=== PATIENT | female | born 1965 | race Caucasian/White ===

== ENCOUNTER 2024-08-23 09:24 | Outpatient (CLI) | payer BC, SELFPAY ==
--- OUTSIDE RECORDS SUMMARY | 2024-08-23 09:42 | XMS_ITS | Clinical Summary ---
Author Organization [facility] Medical Office Building B Address [address] [place] [address] Care Team Providers Care Poultry Picking Machine Tender Name Role Phone No, Physician Primary Care Provider [phone] Allergies No known active allergies Medications loratadine 10 mg capsule Take 10 mg by mouth Active Active Problems Problem Noted Date Diagnosed Date Mass of left breast 03/28/2023 Surgical History Surgery Date Site/Laterality Comments OTHER SURGICAL HISTORY 1982 : OTHER SURGICAL HISTORY 1983 : OTHER SURGICAL HISTORY 1988 : OTHER SURGICAL HISTORY 1986 : TONSILLECTOMY Tonsillectomy TUBAL LIGATION Bilateral tubal ligation AUGMENTATION MAMMAPLASTY BREAST IMPLANT REMOVAL 04/18/2021 - 04/17/2022 Bilateral Medical History Medical History Date Comments Hx Other Medical ; Outc ome: 8lb(s) 1 oz Female Hx Other Medical ; Outc ome: 5lb(s) Female Hx Other Medical ; Outc ome: 6lb(s) Female Hx Other Medical ; Outc ome: 9lb(s) 10 oz Male Abnormal Pap smear of cervix STI (sexually transmitted infection) Family History Medical History Relation Name Comments Hyperlipidemia Brother 1 Hyperlipidemi a; Liver disease Brother 2 Liver disease; Thyroid disease Brother 3 Thyroid dise ase; Asthma Daughter Asthma; Heart disease Maternal Grandfather Heart disease; Hyperlipidemia Maternal Grandfather Hyper lipidemia; Breast cancer Maternal Grandmother 60 Diabetes Maternal Grandmother Diabete s mellitus; Diabetes Mother Diabetes mellit us; Hyperlipidemia Sister Hyperlipidemi a; Melanoma Sister 39 Relation Name Status Comments Brother 1 Brother 2 Brother 3 Daughter Maternal Grandfather Maternal Grandmother Mother Sister Social History Tobacco Use Types Packs/Day Years Used Date Smoking Tobacco: Never Tobacco Cessation:Counseling Given: Not Answered Alcohol Use Standard Drinks/Week Comments Yes 0 (1 standard drink = 0.6 oz pur e alcohol) Humiliation, Afraid, Rape, and Kick questionnair e Answer Date Recorded Within the last year, have y ou been afraid of your partner or ex-partner? No 04/26/2023 Within the last year, have y ou been humiliated or emotionally abused in other ways by your partner or ex-partner? No Within the last year, have y ou been kicked, hit, slapped, or otherwise physically hurt by your partner or ex-partner? No 04/26/2023 Within the last year, have y ou been raped or forced to have any kind of sexual activity by your partner or ex-partner? No 04/26/2023 AUDIT-C Answer Date Recorded Q1: How often do you have a drink containing alc ohol? Monthly or less 04/26/2023 Q2: How many drinks containi ng alcohol do you have on a typical day when you are drinking? 1 or 2 04/26/2023 Q3: How often do you have si x or more drinks on one occasion? Less than monthly 04/26/2023 PHQ-2 Answer Date Recorded PHQ-2 Total Score (If total score is 3 or more points, staff should administer the PHQ-9) 0 04/26/2023 Comments No Sex and Gender Information Value Date Recorded Sex Assigned at Not on file Legal Sex Female 7:42 PM WOOD HANDLER Gender Identity Not on file Sexual Orientation Not on file Obstetrics History Para Term AB IAB SAB Ectopic Multiple Livin g Live Births 5 4 Date Outcome GA Total Labor Labor/2nd/3rd Weight Sex Type Anes PTL Peggy A1 A5 Name Clin Last Filed Vital Signs Vital Sign Reading Time Taken Comments Blood Pressure 118/76 04/26/2023 1:11 PM WOOD HANDLER Pulse 64 04/24/2018 2:55 PM WOOD HANDLER Temperature 37.1 C (98.8 F) 04/24/2018 2:55 PM WOOD HANDLER Respiratory Rate - - Oxygen Saturation 100% 04/24/2018 2:55 PM WOOD HANDLER Inhaled Oxygen Concentration - - Weight 84.5 kg (186 lb 3.2 oz) 04/26/2023 1:11 P M WOOD HANDLER Height 156.2 cm (5' 1.5 ) 03/28/2023 9:00 AM WOOD HANDLER Body Mass Index 34.61 03/28/2023 9:00 AM WOOD HANDLER Plan of Treatment Health Maintenance Due Date Last Done Comments Colon Cancer Screening-Colonoscopy 1965 Hepatitis C Screening 1965 DTaP/Tdap/Td Vaccine (1 - Tdap) 1976 Hepatitis B Screening 1983 Zoster Vaccine (1 of 2) 2015 Covid-19 Vaccine (4 - 2023-2 5 season) 2023 06/26/2021, 05/21/2020, 04/30/2020 Breast Cancer Screening-Mammogram 03/28/2024 03/28/2023 Cervical Cancer Screening 04/26/20242023, 07/20/2015 Depression Screening 04/26/2024 04/26/2023 Regular Well Visit/Exam 18-64 04/26/2024 04/26/2023 Influenza Vaccine (Season Ended) 2024 Pneumococcal vaccine <65 Aged Out No longer eligible based on patient's age to complete this topic Procedures Procedure Name Priority Date/Time Associated Diagnosis Comments PAP AND HPV, REFLEX TO HPV GENOTYPES Routine 04/26/2023 1:54 PM WOOD HANDLER Encounter for gynecological examination with Papanicolaou smear of cervix DIAGNOSTIC MAMMOGRAM BILATERAL W PRIYA Schedule Routine, Read Routine (OP Routine) 03/28/2023 10:24 AM WOOD HANDLER Breast pain, left from Last 3 Months or Most Recently Relevant to Health Maintenance Results * Pap and HPV, reflex to HPV Genotypes (04/26/2023 1:54 PM WOOD HANDLER) CLINICAL INFORMATION: [employer] [facility] Comment: Routine exam Postmenopausal LMP [facility] Comment:CECILIA Previous Pap [employer] [facility] Comment:None given Prev. Bx [facility] Comment:None given SOURCE: [employer] [facility] Comment:Cervix, Endocervix Pap, specimen adequacy [facility] Comment: Satisfactory for evaluation. Endocervical/transformation zone component present. HPV interp [facility] Comment: Cytology Results: Negative for intraepithelial lesion or malignancy. COMMENTS [facility] Comment: This case could not be evaluated with computer assisted technology. The slide was manually screened according to routine procedures. Business Area Director Jesus Manuel [facility] Comment: BES, CT(ASCP) CT screening location: [place] [address] Administration [place]IS [place]av[place] [address] Comment [facility] Comment: EXPLANATORY NOTE: The Pap is a screening test for cervical cancer. It is not a diagnostic test and is subject to false negative and false positive results. It is most reliable when a satisfactory sample, regularly obtained, is submitted with relevant clinical findings and history, and when the Pap result is evaluated along with historic and current clinical information. Human papillomavirus DNA, High Risk E6/E7 Not Detected NOT DETECTED [facility] /Wilian [facility]ELAY[facility] Comment: Not Detected High Risk HPV types (16,18,31,33,35,39,45,51,52, 56,58,59,66,68) were not detected. Other HPV types which cause anogenital lesions may be present. The significance of the other types of HPV in malignant processes has not been established. Methodology: Real Time PCR Thin prep 04/26/2023 1:54 PM WOOD HANDLER 04/27/2023 3:53 AM WOOD HANDLER us Mirian Montgomery NP LAB CYTOLOGY ORDERABLES Final Re sult [place] [address] [address] [place] [address] [facility] [address] [place] [address] * Diagnostic Mammogram Bilateral W Priya (03/28/2023 10:24 AM WOOD HANDLER) Anatomical Region Laterality Modality Breast Bilateral Mammography 03/28/2023 11:1 2 AM WOOD HANDLER Impressions 03/28/2023 11:21 AM WOOD HANDLER 1. Benign simple cyst corresponding to patient's site of palpable abnormality in the LEFT breast at the 5:30 position 1 cm from the nipple 2. No sonographic or mammographic correlate in the LEFT axilla for patient's pain OVERALL FINAL ASSESSMENT: BI-RADS Category 2: Benign. RECOMMENDATION: 1. Annual screening mammography is recommended. 2. Clinical follow-up is recommended. Appropriate clinical management is recommended. Negative imaging does not negate the need of a biopsy if high clinical suspicion exists, and a biopsy under palpation may be performed. Dictated by: Hoang Jimenez M.D. The radiology attending physician has personally reviewed this study, and had reviewed and/or edited this written report and agrees with it. Electronically signed by: Joselin Whitney M.D. Narrative 03/28/2023 11:21 AM WOOD HANDLER EXAMINATION: BILATERAL DIGITAL DIAGNOSTIC MAMMOGRAM INCLUDING CAD AND BILATERAL DIGITAL BREAST TOMOSYNTHESIS; LEFT BREAST AND LEFT AXILLARY SONOGRAM HISTORY: 57-year-old female with LEFT axillary pain and LEFT breast palpable abnormality COMPARISON: Screening mammogram 07/28/2015 and 02/28/2007 TECHNIQUE: Full field digital mammographic views of BOTH breasts were performed, including computer aided detection (CAD) and BILATERAL digital breast tomosynthesis (DBT). Directed ultrasound evaluation of the LEFT breast was performed. Directed ultrasound evaluation of the LEFT axilla was performed. BREAST PARENCHYMAL COMPOSITION: The breasts are heterogenously dense, which may obscure small masses. MAMMOGRAM FINDINGS: There is no new suspicious abnormality in either breast. No suspicious abnormality in the LEFT axilla, area of pain indicated by the triangular marker. No suspicious abnormality in the area of palpable concern in the left subareolar breast, SONOGRAM INDICATED BY THE PATIENT. FINDINGS: In the LEFT breast at the 5:30 position 1 cm from the nipple there is a simple cyst that measures 0.8 cm in greatest dimension with posterior through transmission and no internal vascular flow. No suspicious sonographic findings in the LEFT axilla. Procedure Note Joselin Whitney MD - 03/28/2023 EXAMINATION: BILATERAL DIGITAL DIAGNOSTIC MAMMOGRAM INCLUDING CAD AND BILATERAL DIGITAL BREAST TOMOSYNTHESIS; LEFT BREAST AND LEFT AXILLARY SONOGRAM HISTORY: 57-year-old female with LEFT axillary pain and LEFT breast palpable abnormality COMPARISON: Screening mammogram 07/28/2015 and 02/28/2007 TECHNIQUE: Full field digital mammographic views of BOTH breasts were performed, including computer aided detection (CAD) and BILATERAL digital breast tomosynthesis (DBT). Directed ultrasound evaluation of the LEFT breast was performed. Directed ultrasound evaluation of the LEFT axilla was performed. BREAST PARENCHYMAL COMPOSITION: The breasts are heterogenously dense, which may obscure small masses. MAMMOGRAM FINDINGS: There is no new suspicious abnormality in either breast. No suspicious abnormality in the LEFT axilla, area of pain indicated by the triangular marker. No suspicious abnormality in the area of palpable concern in the left subareolar breast, SONOGRAM INDICATED BY THE PATIENT. FINDINGS: In the LEFT breast at the 5:30 position 1 cm from the nipple there is a simple cyst that measures 0.8 cm in greatest dimension with posterior through transmission and no internal vascular flow. No suspicious sonographic findings in the LEFT axilla. IMPRESSION: 1. Benign simple cyst corresponding to patient's site of palpable abnormality in the LEFT breast at the 5:30 position 1 cm from the nipple 2. No sonographic or mammographic correlate in the LEFT axilla for patient's pain OVERALL FINAL ASSESSMENT: BI-RADS Category 2: Benign. RECOMMENDATION: 1. Annual screening mammography is recommended. 2. Clinical follow-up is recommended. Appropriate clinical management is recommended. Negative imaging does not negate the need of a biopsy if high clinical suspicion exists, and a biopsy under palpation may be performed. Dictated by: Hoang Jimenez M.D. The radiology attending physician has personally reviewed this study, and had reviewed and/or edited this written report and agrees with it. Electronically signed by: Joselin Whitney M.D. Sylvia Gamez NP IMG MAMMO PROCEDURES Final Result from Last 3 Months or Most Recently Relevant to Health Maintenance Care Teams Poultry Picking Machine Tender Relationship Specialty Start Date End Date No, Physician PCP - General 02/08/23
--- OUTSIDE RECORDS SUMMARY | 2024-08-23 09:42 | XMS_ITS | Referral Summary ---
Author Organization [facility] Address [address] [place] [address] Care Team Providers Care Chief Wharfinger Name Role Phone No, Physician Primary Care Provider [phone] Allergies No known active allergies Medications loratadine 10 mg capsule Take 10 mg by mouth Active Active Problems Problem Noted Date Diagnosed Date Mass of left breast 03/28/2023 Social History Tobacco Use Types Packs/Day Years [...] on file Legal Sex Female 7:42 PM SKEIN DRIER Gender Identity Not on file Sexual Orientation Not on file Last Filed Vital Signs Vital Sign Reading Time Taken Comments Blood Pressure 118/76 04/26/2023 1:11 PM SKEIN DRIER Pulse 64 04/24/2018 2:55 PM SKEIN DRIER Temperature 37.1 C (98.8 F) 04/24/2018 2:55 PM SKEIN DRIER Respiratory Rate - - Oxygen Saturation 100% 04/24/2018 2:55 PM SKEIN DRIER Inhaled Oxygen Concentration - - Weight 84.5 kg (186 lb 3.2 oz) 04/26/2023 1:11 P M SKEIN DRIER Height 156.2 cm (5' 1.5 ) 03/28/2023 9:00 AM SKEIN DRIER Body Mass Index 34.61 03/28/2023 9:00 AM SKEIN DRIER Plan of Treatment Not on file Procedures Procedure Name Priority Date/Time Associated Diagnosis Comments PAP AND HPV, REFLEX TO HPV GENOTYPES Routine 04/26/2023 1:54 PM SKEIN DRIER Encounter for gynecological examination with Papanicolaou smear of cervix DIAGNOSTIC MAMMOGRAM BILATERAL W PRIYA Schedule Routine, Read Routine (OP Routine) 03/28/2023 10:24 AM SKEIN DRIER Breast pain, left from Last 3 Months or Most Recently Relevant to Health Maintenance Results * Pap and HPV, reflex to HPV Genotypes (04/26/2023 1:54 PM SKEIN DRIER) CLINICAL INFORMATION: [facility] Comment: Routine exam Postmenopausal LMP [facility] Comment:CECILIA Previous Pap [facility] Comment:None given Prev. Bx [facility] Comment:None given SOURCE: [facility] Comment:Cervix, Endocervix Pap, specimen adequacy [facility] Comment: Satisfactory for evaluation. Endocervical/transformation zone component present. HPV interp [facility] Comment: Cytology Results: Negative for intraepithelial lesion or malignancy. COMMENTS [facility] Comment: This case could not be evaluated with computer assisted technology. The slide was manually screened according to routine procedures. Wash Barrel Leader [facility] Comment: BES, CT(ASCP) CT screening location: [place] [address] Administration [place] [id number] Comment [facility] Comment: EXPLANATORY NOTE: The Pap is a [...] Risk E6/E7 Not Detected NOT DETECTED Odalys [facility] /Wilian ZELAYA Comment: Not Detected High Risk HPV types (16,18,31,33,35,39,45,51,52, 56,58,59,66,68) were not detected. Other HPV types which cause anogenital lesions may be present. The significance of the other types of HPV in malignant processes has not been established. Methodology: Real Time PCR Thin prep 04/26/2023 1:54 PM SKEIN DRIER 04/27/2023 3:53 AM SKEIN DRIER Mirian Montgomery NP LAB CYTOLOGY ORDERABLES Final Re sult [place] [address] [address] [place] [phone] [facility]/[place] [address] [address] [place] [address] * Diagnostic Mammogram Bilateral W Priya (03/28/2023 10:24 AM SKEIN DRIER) Anatomical Region Laterality Modality Breast Bilateral Mammography 03/28/2023 11:1 2 AM SKEIN DRIER Impressions 03/28/2023 11:21 AM SKEIN DRIER 1. Benign simple cyst corresponding to patient's [...] Joselin Whitney M.D. Narrative 03/28/2023 11:21 AM SKEIN DRIER EXAMINATION: BILATERAL DIGITAL DIAGNOSTIC MAMMOGRAM INCLUDING CAD [...] Recently Relevant to Health Maintenance Care Teams Chief Wharfinger Relationship Specialty Start Date End Date No, Physician PCP - General 02/08/23
--- OUTSIDE RECORDS SUMMARY | 2024-08-23 09:42 | XMS_ITS | Encounter Summary ---
Author Organization [facility] Healthcare Address [address] [place] [address] Care Team Providers Care Cds Sales Advisor Name Role Phone Unavailable Primary Care Provider Unavailabl e Reason for Visit * Diagnostic Imaging (Routine) - Closed Specialty Diagnoses / Procedures Referred By Contac t Referred To Contact Procedures Breast Imaging US Outside Reference Transcribed Order, Provider Referral ID Status Reason Start Date Expiration Date Visits Re quested Visits Authorized [id number] Closed 03/28/2023 04/26/2024 1 1 Encounter Details Date Type Department Care Team (Late st Contact Info) Description 07/28/2015 12:05 AM CDT Hospital Encounter [facility] [address] [place] [id number] Social History Tobacco Use Types Packs/Day Years Used Date Smoking Tobacco: Never Alcohol Use Standard Drinks/Week Comments Yes 0 [...] on file Legal Sex Female 7:42 PM SONALI Gender Identity Not on file Sexual Orientation Not on file documented as of this encounter Functional Status * Audit-C Score Answer Date of Assessment Author 2 04/26/2023 1:29 PM Wing Hanna NP * Intimate Partner Violence Question Answer Date of Assessment Author Within the last year, have y ou been humiliated or emotionally abused in other ways by your partner or ex-partner? No 04/26/2023 1:30 PM Mirian Hanna NP Within the last year, have y ou been afraid of your partner or ex-partner? No 04/26/2023 1:30 PM Mirian Hanna NP Within the last year, have y ou been raped or forced to have any kind of sexual activity by your partner or ex-partner? No 04/26/2023 1:30 PM Mirian Hanna NP Within the last year, have y ou been kicked, hit, slapped, or otherwise physically hurt by your partner or ex-partner? No 04/26/2023 1:30 PM Mirian Hanna NP * Question Answer Date of Assessment Author Q1: How often do you have a drink containing alcohol? Monthly or less 04/26/2023 1:29 PM Pamela Hanna NP Q2: How many drinks containing alcohol do you have on a typical day when you are drinking? 1 or 2 04/26/2023 1:29 PM Mirian Hanna NP Q3: How often do you have six or more drinks on one occasion? Less than monthly 04/26/2023 1:29 PM Mirian Hanna NP documented as of this encounter Plan of Treatment Not on file documented as of this encounter Procedures Procedure Name Priority Date/Time Associated Diagnosis Comments BREAST IMAGING US OUTSIDE REFERENCE Routine 07/28/2015 12:05 AM CDT documented in this encounter Results * Breast Imaging US Outside Reference (07/28/2015 12:05 AM CDT) Impressions [facility] - 03/28/2023 11:52 AM LUMBER CARRIER OPERATOR These images are for Reference purposes only and have not been reviewed by [facility] Radiology. There will be no report generated by a [facility] Radiologist. Narrative [facility] - 03/28/2023 11:52 AM LUMBER CARRIER OPERATOR EXAMINATION: Images For Reference Purposes Only us Provider Transcribed Order IMG MAMMO PROCEDURES Final Result [facility] documented in this encounter Visit Diagnoses Not on filedocumented in this encounter
--- OUTSIDE RECORDS SUMMARY | 2024-08-23 09:42 | XMS_ITS | Clinical Summary ---
Author Organization [facility] Address [facility] [place] [address] Care Team Providers Care Business Development Specialist Name Role Phone None, Provider Primary Care Provider Unavaila ble Social History Tobacco Use Types Packs/Day Years Used Date Smoking Tobacco: Never Assessed Comments Unknown Sex and Gender Information Value Date Recorded Sex Assigned at Not on file Legal Sex Female 7:06 AM CDT Gender Identity Not on file Sexual Orientation Not on file Plan of Treatment Health Maintenance Due Date Last Done Comments Cervical Cancer Screening Pa p Smear (Age 30 to 64) Every 3 Years 1965 Colorectal Cancer Screening Colonoscopy (10 Years) 1965 Annual Physical 1968 Hepatitis C 1983 DTaP, Tdap and Td Vaccines ( 1 - Tdap) 1984 Cervical Cancer Screening Pa p with HPV Testing (Age 30 to 64) Every 5 Years 1995 Cervical Cancer Screening wi th HPV 1995 Mammogram Screening 2005 Pneumococcal Vaccine: 50+ Years (1 of 1 - PCV) 2015 Zoster Vaccines (1 of 2) 2015 COVID-19 Vaccine (4 - 2023-2 5 season) 2023 06/26/2021, 05/21/2020, 04/30/2020 Meningococcal B Vaccine Aged Out No l onger eligible based on patient's age to complete this topic Meningococcal Vaccine Aged Out No lee ann enrico eligible based on patient's age to complete this topic RSV Immunizations Under 20 Months Aged Out No longer eligible b ased on patient's age to complete this topic Care Teams Business Development Specialist Relationship Specialty Start Date End Date None, Provider, PCP - General 01/12/22
--- OUTSIDE RECORDS SUMMARY | 2024-08-23 09:42 | XMS_ITS | Encounter Summary ---
Author Organization [facility] Healthcare Address [address] [place] [address] Care Team Providers Care Brim Curler Name Role Phone Unavailable Primary Care Provider Unavailabl e Reason for Visit * Diagnostic Imaging (Routine) - Closed Specialty Diagnoses / Procedures Referred By Gissel cobb Referred To Contact Diagnoses Breast pain, left Procedures Breast Imaging Screening Outside Reference Sylvia Gamez NP Phone: tel: fax: Referral ID Status Reason Start Date Expiration Date Visits Re quested Visits Authorized [id number] Closed 03/28/2023 04/26/2024 1 1 Encounter Details Date Type Department Care Team (Late st Contact Info) Description 07/28/2015 Hospital Encounter [facility]iology [facility] [address] [place] [address] Social History Tobacco Use Types Packs/Day Years [...] on file Legal Sex Female 7:42 PM AEROSPACE ENGINEER OFFICER ARMAMENT Gender Identity Not on file Sexual Orientation [...] occasion? Less than monthly 04/26/2023 1:29 PM AEROSPACE ENGINEER OFFICER ARMAMENT Mirian Montgomery NP documented as of this encounter Plan of Treatment Not on file documented as of this encounter Procedures Procedure Name Priority Date/Time Associated Diagnosis Comments BREAST IMAGING MG SCREENING OUTSIDE REFERENCE Schedule Routine, Read Routine (OP Routine) 07/28/2015 12:00 AM CDT Breast pain, left documented in this encounter Results * Breast Imaging Screening Outside Reference (07/28/2015 12:00 AM CDT) Impressions [facility] - 03/28/2023 10:04 AM AEROSPACE ENGINEER OFFICER ARMAMENT These images are for Reference purposes only and have not been reviewed by [facility] Radiology. There will be no report generated by a [facility] Radiologist. Narrative [facility] - 03/28/2023 10:04 AM AEROSPACE ENGINEER OFFICER ARMAMENT EXAMINATION: Images For Reference Purposes Only us Sylvia Gamez NP IMG MAMMO PROCEDURES Final Result [facility] documented in this encounter Visit Diagnoses Not on filedocumented in this encounter
--- OUTSIDE RECORDS SUMMARY | 2024-08-23 09:43 | XMS_ITS | Patient Health Record ---
Author Organization [facility] Address [address] [place] [address] Care Team Providers Care Mounter Flutes And Piccolos Name Role Phone UNKNOWN, UNKNOWN Primary Care Provider Unavailab Boaz Cruz Unavailable Allergies No Known Allergies Reason For Referral No Information Problems Problem Type SNOMED Code ICD Code Onset Dates Problem Status W/U Status Risk Notes Problem [id number] Porokeratosis (Q82.8) Active confirmed Plan Of Treatment No Information Medical (General) History Surgical History Surgery Date(Month/Year)
== END 2024-08-23 09:25 | disposition home or self-care (01) ==
LOC: ANHAUDIO 09:24
PROVIDERS: PCP Nurse Practitioner Family; Visit Provider Nurse Practitioner Family
DX: H90.3 Sensorineural hearing loss, bilateral (principal)
CPT/HCPCS: 92557; 92567

== ENCOUNTER 2024-08-23 11:25 | Outpatient (CLI) | payer BC, SELFPAY ==
--- OUTSIDE RECORDS SUMMARY | 2024-08-23 11:28 | XMS_ITS | Referral Summary ---
Author Organization [facility] Address [address] [place] [address] Care Team Providers Care Adjunct Nursing Faculty Name Role Phone No, Physician Primary Care Provider [phone] Allergies No known active allergies Medications loratadine [...] on file Legal Sex Female 7:42 PM MACHINE BOSS Gender Identity Not on file Sexual Orientation Not on file Last Filed Vital Signs Vital Sign Reading Time Taken Comments Blood Pressure 118/76 04/26/2023 1:11 PM MACHINE BOSS Pulse 64 04/24/2018 2:55 PM MACHINE BOSS Temperature 37.1 C (98.8 F) 04/24/2018 2:55 PM MACHINE BOSS Respiratory Rate - - Oxygen Saturation 100% 04/24/2018 2:55 PM MACHINE BOSS Inhaled Oxygen Concentration - - Weight 84.5 kg (186 lb 3.2 oz) 04/26/2023 1:11 P M MACHINE BOSS Height 156.2 cm (5' 1.5 ) 03/28/2023 9:00 AM MACHINE BOSS Body Mass Index 34.61 03/28/2023 9:00 AM MACHINE BOSS Plan of Treatment Not on file Procedures Procedure Name Priority Date/Time Associated Diagnosis Comments PAP AND HPV, REFLEX TO HPV GENOTYPES Routine 04/26/2023 1:54 PM MACHINE BOSS Encounter for gynecological examination with Papanicolaou smear of cervix DIAGNOSTIC MAMMOGRAM BILATERAL W PRIYA Schedule Routine, Read Routine (OP Routine) 03/28/2023 10:24 AM MACHINE BOSS Breast pain, left from Last 3 Months or Most Recently Relevant to Health Maintenance Results * Pap and HPV, reflex to HPV Genotypes (04/26/2023 1:54 PM MACHINE BOSS) CLINICAL INFORMATION: [facility] Comment: Routine exam Postmenopausal LMP [facility] Comment:CECILIA Previous Pap [facility] Comment:None given Prev. Bx [facility] Comment:None given SOURCE: [facility] Comment:Cervix, Endocervix Pap, specimen adequacy [facility] Comment: Satisfactory for evaluation. Endocervical/transformation zone component present. HPV interp [facility] Comment: Cytology Results: Negative for intraepithelial lesion or malignancy. COMMENTS [facility] Comment: This case could not be evaluated with computer assisted technology. The slide was manually screened according to routine procedures. [facility] Comment: BES, CT(ASCP) CT screening location: [place] [address] Administration PHYLLIS Chavira [address] Comment [facility] Comment: EXPLANATORY NOTE: The Pap is a [...] Risk E6/E7 Not Detected NOT DETECTED [facility] /Wilian ZELAYA Comment: Not Detected High Risk HPV types (16,18,31,33,35,39,45,51,52, 56,58,59,66,68) were not detected. Other HPV types which cause anogenital lesions may be present. The significance of the other types of HPV in malignant processes has not been established. Methodology: Real Time PCR Thin prep 04/26/2023 1:54 PM MACHINE BOSS 04/27/2023 3:53 AM MACHINE BOSS Mirian Montgomery NP LAB CYTOLOGY ORDERABLES Final Re sult [place] [address] Administration PHYLLIS [place] [address] [facility]/[place] [address] [place] [address] * Diagnostic Mammogram Bilateral W Priya (03/28/2023 10:24 AM MACHINE BOSS) Anatomical Region Laterality Modality Breast Bilateral Mammography 03/28/2023 11:1 2 AM MACHINE BOSS Impressions 03/28/2023 11:21 AM MACHINE BOSS 1. Benign simple cyst corresponding to patient's [...] Joselin Whitney M.D. Narrative 03/28/2023 11:21 AM MACHINE BOSS EXAMINATION: BILATERAL DIGITAL DIAGNOSTIC MAMMOGRAM INCLUDING CAD [...] Recently Relevant to Health Maintenance Care Teams Adjunct Nursing Faculty Relationship Specialty Start Date End Date No, Physician PCP - General 02/08/23
--- OUTSIDE RECORDS SUMMARY | 2024-08-23 11:28 | XMS_ITS | Clinical Summary ---
Author Organization [facility] Address [facility] [place] [address] Care Team Providers Care Hydraulic Miner Blasting Name Role Phone None, Provider Primary Care [...] age to complete this topic Care Teams Hydraulic Miner Blasting Relationship Specialty Start Date End Date None, Provider, PCP - General 01/12/22
--- OUTSIDE RECORDS SUMMARY | 2024-08-23 11:28 | XMS_ITS | Encounter Summary ---
Author Organization [facility] Address [address] [place] [address] Care Team Providers Care Earth Auger Operator Name Role Phone Unavailable Primary Care Provider Unavailabl e Reason for Visit * Diagnostic Imaging (Routine) - Closed Specialty Diagnoses / Procedures Referred By Contac t Referred To Contact Procedures Breast Imaging US Outside Reference Transcribed Order, Provider Referral ID Status Reason Start Date Expiration Date Visits Re quested Visits Authorized [id number] Closed 03/28/2023 04/26/2024 1 1 Encounter Details Date Type Department Care Team (Late st Contact Info) Description 07/28/2015 12:05 AM CDT Hospital Encounter [facility] [address] [place] [id number] Social History Tobacco Use Types Packs/Day Years [...] CDT) Impressions [facility] - 03/28/2023 11:52 AM MACHINE ROOM OPERATOR These images are for Reference purposes only and have not been reviewed by [facility]iology. There will be no report generated by a [facility] Radiologist. Narrative [facility] - 03/28/2023 11:52 AM MACHINE ROOM OPERATOR EXAMINATION: Images For Reference Purposes Only us Provider Transcribed Order IMG MAMMO PROCEDURES Final Result [facility] documented in this encounter Visit Diagnoses Not on filedocumented in this encounter
--- OUTSIDE RECORDS SUMMARY | 2024-08-23 11:28 | XMS_ITS | Clinical Summary ---
Author Organization [facility] Medical Office Building B Address [address] [place] [address] Care Team Providers Care Grain Elevator Operator Name Role Phone No, Physician Primary Care Provider [phone] Allergies No known active allergies Medications loratadine [...] on file Legal Sex Female 7:42 PM ADMINISTRATIVE RESIDENT Gender Identity Not on file Sexual Orientation Not on file Obstetrics History Para Term AB IAB SAB Ectopic Multiple Livin g Live Births 5 4 Date Outcome GA Total Labor Labor/2nd/3rd Weight Sex Type Anes PTL Peggy A1 A5 Name Clin Last Filed Vital Signs Vital Sign Reading Time Taken Comments Blood Pressure 118/76 04/26/2023 1:11 PM ADMINISTRATIVE RESIDENT Pulse 64 04/24/2018 2:55 PM ADMINISTRATIVE RESIDENT Temperature 37.1 C (98.8 F) 04/24/2018 2:55 PM ADMINISTRATIVE RESIDENT Respiratory Rate - - Oxygen Saturation 100% 04/24/2018 2:55 PM ADMINISTRATIVE RESIDENT Inhaled Oxygen Concentration - - Weight 84.5 kg (186 lb 3.2 oz) 04/26/2023 1:11 P M ADMINISTRATIVE RESIDENT Height 156.2 cm (5' 1.5 ) 03/28/2023 9:00 AM ADMINISTRATIVE RESIDENT Body Mass Index 34.61 03/28/2023 9:00 AM ADMINISTRATIVE RESIDENT Plan of Treatment Health Maintenance Due Date [...] TO HPV GENOTYPES Routine 04/26/2023 1:54 PM ADMINISTRATIVE RESIDENT Encounter for gynecological examination with Papanicolaou smear of cervix DIAGNOSTIC MAMMOGRAM BILATERAL W PRIYA Schedule Routine, Read Routine (OP Routine) 03/28/2023 10:24 AM ADMINISTRATIVE RESIDENT Breast pain, left from Last 3 Months or Most Recently Relevant to Health Maintenance Results * Pap and HPV, reflex to HPV Genotypes (04/26/2023 1:54 PM ADMINISTRATIVE RESIDENT) CLINICAL INFORMATION: [facility] Comment: Routine exam [facility]menopausal [facility]MP [facility] Comment:CECILIA Previous Pap [facility] Comment:None given Prev. Bx [facility] Comment:None given SOURCE: [facility] [employer] [facility] Comment:Cervix, Endocervix Pap, specimen adequacy [facility] Comment: Satisfactory for evaluation. Endocervical/transformation zone component present. HPV interp [facility] Comment: Cytology Results: Negative for intraepithelial lesion or malignancy. COMMENTS [facility] Comment: This case could not be evaluated with computer assisted technology. The slide was manually screened according to routine procedures. Health Information Director Jesus Manuel [facility] Comment: BES, CT(ASCP) CT screening location: [place] [address] Administration PHYLLIS Chavira [phone] [facility] Comment: EXPLANATORY NOTE: The Pap is [...] Time PCR Thin prep 04/26/2023 1:54 PM ADMINISTRATIVE RESIDENT 04/27/2023 3:53 AM ADMINISTRATIVE RESIDENT us Mirian Montgomery NP LAB CYTOLOGY ORDERABLES Final Re sult [place] [address] Administration [place]IS [place] [address] [facility] [address] [place] [address] * Diagnostic Mammogram Bilateral W Priya (03/28/2023 10:24 AM ADMINISTRATIVE RESIDENT) Anatomical Region Laterality Modality Breast Bilateral Mammography 03/28/2023 11:1 2 AM ADMINISTRATIVE RESIDENT Impressions 03/28/2023 11:21 AM ADMINISTRATIVE RESIDENT 1. Benign simple cyst corresponding to patient's [...] Joselin Whitney M.D. Narrative 03/28/2023 11:21 AM ADMINISTRATIVE RESIDENT EXAMINATION: BILATERAL DIGITAL DIAGNOSTIC MAMMOGRAM INCLUDING CAD [...] Recently Relevant to Health Maintenance Care Teams Grain Elevator Operator Relationship Specialty Start Date End Date No, Physician PCP - General 02/08/23
--- OUTSIDE RECORDS SUMMARY | 2024-08-23 11:28 | XMS_ITS | Encounter Summary ---
Author Organization [facility] Address [address] [place] [address] Care Team Providers Care Core Java Engineer Name Role Phone Unavailable Primary Care Provider Unavailabl e Reason for Visit * Diagnostic Imaging (Routine) - Closed Specialty Diagnoses / Procedures Referred By Gissel cobb Referred To Contact Diagnoses Breast pain, left Procedures Breast Imaging Screening Outside Reference Sylvia Gamez NP Phone: tel: fax: Referral ID Status Reason Start Date Expiration Date Visits Re quested Visits Authorized [id number] Closed 03/28/2023 04/26/2024 1 1 Encounter Details Date Type Department Care Team (Late st Contact Info) Description 07/28/2015 Hospital Encounter [facility] [address] [place] [address] Social History Tobacco Use Types Packs/Day Years [...] on file Legal Sex Female 7:42 PM WATER AEROBICS INSTRUCTOR Gender Identity Not on file Sexual Orientation [...] occasion? Less than monthly 04/26/2023 1:29 PM WATER AEROBICS INSTRUCTOR Mirian Montgomery NP documented as of this [...] CDT) Impressions [facility] - 03/28/2023 10:04 AM WATER AEROBICS INSTRUCTOR These images are for Reference purposes only and have not been reviewed by [facility]. There will be no report generated by a [facility] Radiologist. Narrative [facility] - 03/28/2023 10:04 AM WATER AEROBICS INSTRUCTOR EXAMINATION: Images For Reference Purposes Only us Sylvia Gamez NP IMG MAMMO PROCEDURES Final Result [facility] documented in this encounter Visit Diagnoses Not on filedocumented in this encounter
[2024-08-23 11:55] LABS: Hematocrit 40.7 % (37.0-47.0); Hemoglobin 12.8 g/dL (12.0-15.0); Mean Corpuscular HGB Conc 31.4 g/dl (32-36); Mean Corpuscular Hemoglobin 28.2 pg (26-34); Mean Corpuscular Volume 89.6 fl (80-100); Mean Platelet Volume 10.1 fl (7.4-10.4); Platelet Count Result 178 k/mm3 (150-375); Red Blood Count 4.54 M/mm3 (4.2-5.4); Red Cell Distribution Width 13.2 % (11.5-14.5); White Blood Count 5.2 K/mm3 (4.5-10.0)
[2024-08-23 12:09] LABS: Alanine Aminotransferase 26 U/L (6-35); Albumin Level 4.7 g/dL (3.5-5.1); Alkaline Phosphatase 66 U/L (38-126); Amylase 59 U/L (30-110); Anion Gap 9 mmol/L (4-12); Aspartate Amino Transferase 27 U/L (14-36); Bilirubin,Total 0.5 mg/dL (0.2-1.3); Blood Urea Nitrogen 14 mg/dL (7-17); Calcium 9.3 mg/dL (8.4-10.2); Carbon Dioxide 27 mmol/L (22-30); Chloride 104 mmol/L (98-107); Cholesterol 221 mg/dL (0-200); Estimated Glomerular Filt Rate > 60; Glucose 92 mg/dL (65-110); HDL Direct 69 mg/dL; Lipase 42 U/L (23-300); Potassium 4.1 mmol/L (3.4-5.0); Sodium 140 mmol/L (137-145); Triglycerides 87 mg/dL (<150)
[2024-08-23 12:21] LABS: LDL Cholesterol Direct 93 mg/dL
[2024-08-23 12:28] LABS: Vitamin D 25 Hydroxy 31.4 ng/mL
[2024-08-23 12:48] LABS: Hemoglobin A1C 5.4 % (<5.7)
== END 2024-08-23 11:26 | disposition home or self-care (01) ==
PROVIDERS: PCP Nurse Practitioner Family; Visit Provider Nurse Practitioner Family
DX: M25.562 Pain in left knee (principal); Z76.89 Persons encountering health services in other specified circumstances; Z00.00 Encounter for general adult medical examination without abnormal findings; R10.11 Right upper quadrant pain; E66.812 Obesity, class 2; Z13.220 Encounter for screening for lipoid disorders; Z13.1 Encounter for screening for diabetes mellitus; Z78.0 Asymptomatic menopausal state; K21.9 Gastro-esophageal reflux disease without esophagitis; H91.90 Unspecified hearing loss, unspecified ear; E66.9 Obesity, unspecified; Z13.29 Encounter for screening for other suspected endocrine disorder
CPT/HCPCS: 36415; 80053; 80061; 82150; 82306; 83036; 83690; 84443; 85027

== ENCOUNTER 2024-08-24 10:35 | Outpatient (CLI) | payer BC, SELFPAY ==
--- OUTSIDE RECORDS SUMMARY | 2024-08-24 10:39 | XMS_ITS | Clinical Summary ---
Author Organization [facility] Address [facility] [place] [address] Care Team Providers Care Organic Gardening Teacher Name Role Phone None, Provider Primary Care [...] age to complete this topic Care Teams Organic Gardening Teacher Relationship Specialty Start Date End Date None, Provider, PCP - General 01/12/22
--- OUTSIDE RECORDS SUMMARY | 2024-08-24 10:39 | XMS_ITS | Encounter Summary ---
Author Organization [facility] Address [address] [place] [address] Care Team Providers Care Magazine Editor Name Role Phone Unavailable Primary Care Provider Unavailabl e Reason for Visit * Diagnostic Imaging (Routine) - Closed Specialty Diagnoses / Procedures Referred By Gissel cobb Referred To Contact Diagnoses Breast pain, left Procedures Breast Imaging Screening Outside Reference Sylvia Gamez NP Phone: tel: fax: Referral ID Status Reason Start Date Expiration Date Visits Re quested Visits Authorized [id number] Closed 03/28/2023 04/26/2024 1 1 Encounter Details Date Type Department Care Team (Late st Contact Info) Description 07/28/2015 Hospital Encounter [facility]iology [facility] [address] [place] [address] Social History Tobacco Use Types Packs/Day Years [...] on file Legal Sex Female 7:42 PM SPRING COILING MACHINE SETTER Gender Identity Not on file Sexual Orientation [...] occasion? Less than monthly 04/26/2023 1:29 PM SPRING COILING MACHINE SETTER Mirian Montgomery NP documented as of this [...] CDT) Impressions [facility] - 03/28/2023 10:04 AM SPRING COILING MACHINE SETTER These images are for Reference purposes only and have not been reviewed by [facility] Radiology. There will be no report generated by a [facility] Radiologist. Narrative [facility] - 03/28/2023 10:04 AM SPRING COILING MACHINE SETTER EXAMINATION: Images For Reference Purposes Only us Sylvia Gamez NP IMG MAMMO PROCEDURES Final Result [facility] documented in this encounter Visit Diagnoses Not on filedocumented in this encounter
--- OUTSIDE RECORDS SUMMARY | 2024-08-24 10:39 | XMS_ITS | Patient Health Record ---
Author Organization 1 OF [facility] Address [address] [facility] [address] [place] [address] Care Team Providers Care Search Engine Optimization Analyst Name Role Phone UNKNOWN, UNKNOWN Primary Care Provider Unavailab Boaz Cruz Unavailable [phone] Allergies No Known Allergies Reason For Referral No Information Problems Problem Type SNOMED Code ICD Code Onset Dates Problem Status W/U Status Risk Notes Problem [id number] Porokeratosis (Q82.8) Active confirmed Plan Of Treatment No Information Medical (General) History Surgical History Surgery Date(Month/Year)
--- OUTSIDE RECORDS SUMMARY | 2024-08-24 10:39 | XMS_ITS | Referral Summary ---
Author Organization [facility] Address [address] [place] [address] Care Team Providers Care Galley Stripper Name Role Phone No, Physician Primary Care Provider [phone] Allergies No known active allergies Medications loratadine [...] on file Legal Sex Female 7:42 PM PRESS TENDER Gender Identity Not on file Sexual Orientation Not on file Last Filed Vital Signs Vital Sign Reading Time Taken Comments Blood Pressure 118/76 04/26/2023 1:11 PM PRESS TENDER Pulse 64 04/24/2018 2:55 PM PRESS TENDER Temperature 37.1 C (98.8 F) 04/24/2018 2:55 PM PRESS TENDER Respiratory Rate - - Oxygen Saturation 100% 04/24/2018 2:55 PM PRESS TENDER Inhaled Oxygen Concentration - - Weight 84.5 kg (186 lb 3.2 oz) 04/26/2023 1:11 P M PRESS TENDER Height 156.2 cm (5' 1.5 ) 03/28/2023 9:00 AM PRESS TENDER Body Mass Index 34.61 03/28/2023 9:00 AM PRESS TENDER Plan of Treatment Not on file Procedures Procedure Name Priority Date/Time Associated Diagnosis Comments PAP AND HPV, REFLEX TO HPV GENOTYPES Routine 04/26/2023 1:54 PM PRESS TENDER Encounter for gynecological examination with Papanicolaou smear of cervix DIAGNOSTIC MAMMOGRAM BILATERAL W PRIYA Schedule Routine, Read Routine (OP Routine) 03/28/2023 10:24 AM PRESS TENDER Breast pain, left from Last 3 Months or Most Recently Relevant to Health Maintenance Results * Pap and HPV, reflex to HPV Genotypes (04/26/2023 1:54 PM PRESS TENDER) CLINICAL INFORMATION: [facility] Comment: Routine exam Postmenopausal LMP [facility] Comment:CECILIA Previous Pap [facility] Comment:None given Prev. Bx [facility] Comment:None given SOURCE: [facility] Comment:Cervix, Endocervix Pap, specimen adequacy [facility] Comment: Satisfactory for evaluation. Endocervical/transformation zone component present. HPV interp [facility] Comment: Cytology Results: Negative for intraepithelial lesion or malignancy. COMMENTS [facility] Comment: This case could not be evaluated with computer assisted technology. The slide was manually screened according to routine procedures. Joint Setter [facility] [place] Comment: BES, CT(ASCP) CT screening location: [place] [address] Administration PHYLLIS Chavira [address] Comment [facility] Comment: EXPLANATORY NOTE: The Pap is [...] Risk E6/E7 Not Detected NOT DETECTED [facility] /Wilian ZELAYA Comment: Not Detected High Risk HPV types (16,18,31,33,35,39,45,51,52, 56,58,59,66,68) were not detected. Other HPV types which cause anogenital lesions may be present. The significance of the other types of HPV in malignant processes has not been established. Methodology: Real Time PCR Thin prep 04/26/2023 1:54 PM PRESS TENDER 04/27/2023 3:53 AM PRESS TENDER Mirian Montgomery NP LAB CYTOLOGY ORDERABLES Final Re sult [place] [address] Administration PHYLLIS [place] [address] [facility] [address] [place] [address] * Diagnostic Mammogram Bilateral W Priya (03/28/2023 10:24 AM PRESS TENDER) Anatomical Region Laterality Modality Breast Bilateral Mammography 03/28/2023 11:1 2 AM PRESS TENDER Impressions 03/28/2023 11:21 AM PRESS TENDER 1. Benign simple cyst corresponding to patient's [...] Joselin Whitney M.D. Narrative 03/28/2023 11:21 AM PRESS TENDER EXAMINATION: BILATERAL DIGITAL DIAGNOSTIC MAMMOGRAM INCLUDING CAD [...] palpation may be performed. Dictated by: Hoang iJmenez M.D. The radiology attending physician has personally reviewed this study, and had reviewed and/or edited this written report and agrees with it. Electronically signed by: Joselin Whitney M.D. Sylvia Gamez NP IMG MAMMO PROCEDURES Final Result from Last 3 Months or Most Recently Relevant to Health Maintenance Care Teams Galley Stripper Relationship Specialty Start Date End Date No, Physician PCP - General 02/08/23
--- OUTSIDE RECORDS SUMMARY | 2024-08-24 10:39 | XMS_ITS | Clinical Summary ---
Author Organization [facility] Medical Office Building B Address [address] [place] [address] Care Team Providers Care Cane Feeder Name Role Phone No, Physician Primary Care Provider [phone] Allergies No known active allergies Medications loratadine [...] on file Legal Sex Female 7:42 PM DRAW FIRE OPERATOR Gender Identity Not on file Sexual Orientation Not on file Obstetrics History Para Term AB IAB SAB Ectopic Multiple Livin g Live Births 5 4 Date Outcome GA Total Labor Labor/2nd/3rd Weight Sex Type Anes PTL Peggy A1 A5 Name Clin Last Filed Vital Signs Vital Sign Reading Time Taken Comments Blood Pressure 118/76 04/26/2023 1:11 PM DRAW FIRE OPERATOR Pulse 64 04/24/2018 2:55 PM DRAW FIRE OPERATOR Temperature 37.1 C (98.8 F) 04/24/2018 2:55 PM DRAW FIRE OPERATOR Respiratory Rate - - Oxygen Saturation 100% 04/24/2018 2:55 PM DRAW FIRE OPERATOR Inhaled Oxygen Concentration - - Weight 84.5 kg (186 lb 3.2 oz) 04/26/2023 1:11 P M DRAW FIRE OPERATOR Height 156.2 cm (5' 1.5 ) 03/28/2023 9:00 AM DRAW FIRE OPERATOR Body Mass Index 34.61 03/28/2023 9:00 AM DRAW FIRE OPERATOR Plan of Treatment Health Maintenance Due Date [...] TO HPV GENOTYPES Routine 04/26/2023 1:54 PM DRAW FIRE OPERATOR Encounter for gynecological examination with Papanicolaou smear of cervix DIAGNOSTIC MAMMOGRAM BILATERAL W PRIYA Schedule Routine, Read Routine (OP Routine) 03/28/2023 10:24 AM DRAW FIRE OPERATOR Breast pain, left from Last 3 Months or Most Recently Relevant to Health Maintenance Results * Pap and HPV, reflex to HPV Genotypes (04/26/2023 1:54 PM DRAW FIRE OPERATOR) CLINICAL INFORMATION: [facility] Comment: Routine exam [email or web address]:CECILIA Previous Pap [facility] Comment:None given Prev. Bx [facility] Comment:None given SOURCE: [facility] Comment:Cervix, Endocervix Pap, specimen adequacy [facility] Comment: Satisfactory for evaluation. Endocervical/transformation zone component present. HPV interp [facility] Comment: Cytology Results: Negative for intraepithelial lesion or malignancy. COMMENTS [facility] Comment: This case could not be evaluated with computer assisted technology. The slide was manually screened according to routine procedures. Fiber Machine Tender Jesus Manuel [facility] Comment: BES, CT(ASCP) CT screening location: [place] [address] Administration PHYLLIS Chavira [address] Comment [facility] Comment: EXPLANATORY NOTE: The Pap is a [...] Time PCR Thin prep 04/26/2023 1:54 PM DRAW FIRE OPERATOR 04/27/2023 3:53 AM DRAW FIRE OPERATOR us Mirian Montgomery NP LAB CYTOLOGY ORDERABLES Final Re sult [place] [address] Administration [place] [address] [facility] [address] [place] [address] * Diagnostic Mammogram Bilateral W Priya (03/28/2023 10:24 AM DRAW FIRE OPERATOR) Anatomical Region Laterality Modality Breast Bilateral Mammography 03/28/2023 11:1 2 AM DRAW FIRE OPERATOR Impressions 03/28/2023 11:21 AM DRAW FIRE OPERATOR 1. Benign simple cyst corresponding to patient's [...] Joselin Whitney M.D. Narrative 03/28/2023 11:21 AM DRAW FIRE OPERATOR EXAMINATION: BILATERAL DIGITAL DIAGNOSTIC MAMMOGRAM INCLUDING CAD [...] Recently Relevant to Health Maintenance Care Teams Cane Feeder Relationship Specialty Start Date End Date No, Physician PCP - General 02/08/23
--- OUTSIDE RECORDS SUMMARY | 2024-08-24 10:39 | XMS_ITS | Encounter Summary ---
Author Organization [facility] Healthcare Address [address] [place] [address] Care Team Providers Care House Carpenter Name Role Phone Unavailable Primary Care Provider Unavailabl e Reason for Visit * Diagnostic Imaging (Routine) - Closed Specialty Diagnoses / Procedures Referred By Contac t Referred To Contact Procedures Breast Imaging US Outside Reference Transcribed Order, Provider Referral ID Status Reason Start Date Expiration Date Visits Re quested Visits Authorized [id number] Closed 03/28/2023 04/26/2024 1 1 Encounter Details Date Type Department Care Team (Late st Contact Info) Description 07/28/2015 12:05 AM CDT Hospital Encounter [facility] [address] [place] [address] Social History Tobacco Use Types Packs/Day Years [...] CDT) Impressions [facility] - 03/28/2023 11:52 AM FLEET ADMINISTRATOR These images are for Reference purposes only and have not been reviewed by [facility] Radiology. There will be no report generated by a [facility] Radiologist. Narrative [facility] - 03/28/2023 11:52 AM FLEET ADMINISTRATOR EXAMINATION: Images For Reference Purposes Only us Provider Transcribed Order IMG MAMMO PROCEDURES Final Result [facility] documented in this encounter Visit Diagnoses Not on filedocumented in this encounter
== END 2024-08-24 10:36 | disposition home or self-care (01) ==
PROVIDERS: PCP Nurse Practitioner Family; Visit Provider Nurse Practitioner Family
DX: K21.9 Gastro-esophageal reflux disease without esophagitis (principal)
CPT/HCPCS: 87338

== ENCOUNTER 2024-09-13 08:15 | Outpatient (CLI) | payer BC, SELFPAY ==
--- NOTE | ~2024-09-13 | US_ITS ---
Limited Abdominal Sonogram: Real-time sonographic imaging of the right upper quadrant was performed. Clinical History: Right upper quadrant pain Findings: The liver appears normal with no evidence of mass lesion or bile duct dilatation. Main por juan luis vein demonstrates normal direction of flow. The gallbladder is well distended, and appears normal with no evidence of gallstone or wall thickening. The common bile duct measures 3 mm. The visualize d pancreas, aorta, and IVC are unremarkable. Right kidney unremarkable. Impression: No significant abnormality seen. Reviewed, dictated and finalized at location M. Impression: No significant abnormality seen.
--- OUTSIDE RECORDS SUMMARY | 2024-09-13 08:23 | XMS_ITS | Clinical Summary ---
Author Organization [facility] Medical Office Building B Address [address] [place] [address] Care Team Providers Care Chili Pepper Grinder Name Role Phone No, Physician Primary Care Provider [phone] Allergies No known active allergies Medications loratadine [...] on file Legal Sex Female 7:42 PM PRINTED CIRCUIT LAYOUT TAPER Gender Identity Not on file Sexual Orientation Not on file Obstetrics History Para Term AB IAB SAB Ectopic Multiple Livin g Live Births 5 4 Date Outcome GA Total Labor Labor/2nd/3rd Weight Sex Type Anes PTL Peggy A1 A5 Name Clin Last Filed Vital Signs Vital Sign Reading Time Taken Comments Blood Pressure 118/76 04/26/2023 1:11 PM PRINTED CIRCUIT LAYOUT TAPER Pulse 64 04/24/2018 2:55 PM PRINTED CIRCUIT LAYOUT TAPER Temperature 37.1 C (98.8 F) 04/24/2018 2:55 PM PRINTED CIRCUIT LAYOUT TAPER Respiratory Rate - - Oxygen Saturation 100% 04/24/2018 2:55 PM PRINTED CIRCUIT LAYOUT TAPER Inhaled Oxygen Concentration - - Weight 84.5 kg (186 lb 3.2 oz) 04/26/2023 1:11 P M PRINTED CIRCUIT LAYOUT TAPER Height 156.2 cm (5' 1.5) 03/28/2023 9:00 AM PRINTED CIRCUIT LAYOUT TAPER Body Mass Index 34.61 03/28/2023 9:00 AM PRINTED CIRCUIT LAYOUT TAPER Plan of Treatment Health Maintenance Due Date [...] TO HPV GENOTYPES Routine 04/26/2023 1:54 PM PRINTED CIRCUIT LAYOUT TAPER Encounter for gynecological examination with Papanicolaou smear of cervix DIAGNOSTIC MAMMOGRAM BILATERAL W PRIYA Schedule Routine, Read Routine (OP Routine) 03/28/2023 10:24 AM PRINTED CIRCUIT LAYOUT TAPER Breast pain, left from Last 3 Months or Most Recently Relevant to Health Maintenance Results * Pap and HPV, reflex to HPV Genotypes (04/26/2023 1:54 PM PRINTED CIRCUIT LAYOUT TAPER) CLINICAL INFORMATION: Health: [facility] Comment: Routine exam [facility]CECIL[facility] Previous Pap Health: [facility] Comment:None given Prev. Bx Health: [facility] Comment:None given SOURCE: Health: [facility] Comment:Cervix, Endocervix Pap, specimen adequacy Health: [facility] Comment: Satisfactory for evaluation. Endocervical/transformation zone component present. HPV interp [facility] Comment: Cytology Results: Negative for intraepithelial lesion or malignancy. COMMENTS [facility] Comment: This case could not be evaluated with computer assisted technology. The slide was manually screened according to routine procedures. Pizza Maker [facility] Comment: BES, CT(ASCP) CT screening location: [place] [address] Administration PHYLLIS Chavira [phone] Comment [facility] Comment: EXPLANATORY NOTE: The Pap is [...] Time PCR Thin prep 04/26/2023 1:54 PM PRINTED CIRCUIT LAYOUT TAPER 04/27/2023 3:53 AM PRINTED CIRCUIT LAYOUT TAPER us Mirian Montgomery NP LAB CYTOLOGY ORDERABLES Final Re sult [place] [address] Administration PHYLLIS [place] [phone] [facility] [address] [address] [facility] [place] [address] * Diagnostic Mammogram Bilateral W Priya (03/28/2023 10:24 AM PRINTED CIRCUIT LAYOUT TAPER) Anatomical Region Laterality Modality Breast Bilateral Mammography 03/28/2023 11:1 2 AM PRINTED CIRCUIT LAYOUT TAPER Impressions 03/28/2023 11:21 AM PRINTED CIRCUIT LAYOUT TAPER 1. Benign simple cyst corresponding to patient's [...] Joselin Whitney M.D. Narrative 03/28/2023 11:21 AM PRINTED CIRCUIT LAYOUT TAPER EXAMINATION: BILATERAL DIGITAL DIAGNOSTIC MAMMOGRAM INCLUDING CAD [...] Recently Relevant to Health Maintenance Care Teams Chili Pepper Grinder Relationship Specialty Start Date End Date No, Physician PCP - General 02/08/23
--- OUTSIDE RECORDS SUMMARY | 2024-09-13 08:23 | XMS_ITS | Referral Summary ---
Author Organization [facility] Medical Office Building B Address [address] [place] [address] Care Team Providers Care Dry Goods Clerk Name Role Phone No, Physician Primary Care Provider [phone] Allergies No known active allergies Medications loratadine [...] on file Legal Sex Female 7:42 PM LABELLING MACHINE OPERATOR Gender Identity Not on file Sexual Orientation Not on file Last Filed Vital Signs Vital Sign Reading Time Taken Comments Blood Pressure 118/76 04/26/2023 1:11 PM LABELLING MACHINE OPERATOR Pulse 64 04/24/2018 2:55 PM LABELLING MACHINE OPERATOR Temperature 37.1 C (98.8 F) 04/24/2018 2:55 PM LABELLING MACHINE OPERATOR Respiratory Rate - - Oxygen Saturation 100% 04/24/2018 2:55 PM LABELLING MACHINE OPERATOR Inhaled Oxygen Concentration - - Weight 84.5 kg (186 lb 3.2 oz) 04/26/2023 1:11 P M LABELLING MACHINE OPERATOR Height 156.2 cm (5' 1.5) 03/28/2023 9:00 AM LABELLING MACHINE OPERATOR Body Mass Index 34.61 03/28/2023 9:00 AM LABELLING MACHINE OPERATOR Plan of Treatment Not on file Procedures Procedure Name Priority Date/Time Associated Diagnosis Comments PAP AND HPV, REFLEX TO HPV GENOTYPES Routine 04/26/2023 1:54 PM LABELLING MACHINE OPERATOR Encounter for gynecological examination with Papanicolaou smear of cervix DIAGNOSTIC MAMMOGRAM BILATERAL W PRIYA Schedule Routine, Read Routine (OP Routine) 03/28/2023 10:24 AM LABELLING MACHINE OPERATOR Breast pain, left from Last 3 Months or Most Recently Relevant to Health Maintenance Results * Pap and HPV, reflex to HPV Genotypes (04/26/2023 1:54 PM LABELLING MACHINE OPERATOR) CLINICAL INFORMATION: [employer] [facility] Comment: Routine exam Postmenopausal LMP [employer] [facility] Comment:CECILIA Previous Pap [employer] [facility] Comment:None given Prev. Bx [employer] [facility] Comment:None given SOURCE: [employer] [facility] Comment:Cervix, Endocervix Pap, specimen adequacy [employer] [facility] Comment: Satisfactory for evaluation. Endocervical/transformation zone component present. HPV interp [employer] [facility] Comment: Cytology Results: Negative for intraepithelial lesion or malignancy. COMMENTS [employer] [facility] Comment: This case could not be evaluated with computer assisted technology. The slide was manually screened according to routine procedures. Art Editor [facility] Comment: BES, CT(ASCP) CT screening location: [place] [address] Administration PHYLLIS Chavira [phone] Comment [facility] Comment: EXPLANATORY NOTE: The Pap is [...] Risk E6/E7 Not Detected NOT DETECTED Odalys [facility] /Wilian ZELAYA Comment: Not Detected High Risk HPV types (16,18,31,33,35,39,45,51,52, 56,58,59,66,68) were not detected. Other HPV types which cause anogenital lesions may be present. The significance of the other types of HPV in malignant processes has not been established. Methodology: Real Time PCR Thin prep 04/26/2023 1:54 PM LABELLING MACHINE OPERATOR 04/27/2023 3:53 AM LABELLING MACHINE OPERATOR Mirian Montgomery NP LAB CYTOLOGY ORDERABLES Final Re sult [place] [address] Administration PHYLLIS Moore [phone] [facility]/[place] [address] [facility] [place] [address] * Diagnostic Mammogram Bilateral W Priya (03/28/2023 10:24 AM LABELLING MACHINE OPERATOR) Anatomical Region Laterality Modality Breast Bilateral Mammography 03/28/2023 11:1 2 AM LABELLING MACHINE OPERATOR Impressions 03/28/2023 11:21 AM LABELLING MACHINE OPERATOR 1. Benign simple cyst corresponding to [...] Joselin Whitney M.D. Narrative 03/28/2023 11:21 AM LABELLING MACHINE OPERATOR EXAMINATION: BILATERAL DIGITAL DIAGNOSTIC MAMMOGRAM INCLUDING [...] Recently Relevant to Health Maintenance Care Teams Dry Goods Clerk Relationship Specialty Start Date End Date No, Physician PCP - General 02/08/23
--- OUTSIDE RECORDS SUMMARY | 2024-09-13 08:23 | XMS_ITS | Encounter Summary ---
Author Organization [facility] Healthcare Address [address] [place] [address] Care Team Providers Care Speedboat Driver Name Role Phone Unavailable Primary Care Provider Unavailabl e Reason for Visit * Diagnostic Imaging (Routine) - Closed Specialty Diagnoses / Procedures Referred By Gissel cobb Referred To Contact Diagnoses Breast pain, left Procedures Breast Imaging Screening Outside Reference Sylvia Gamez NP Phone: tel: fax: Referral ID Status Reason Start Date Expiration Date Visits Re quested Visits Authorized [id number] Closed 03/28/2023 04/26/2024 1 1 Encounter Details Date Type Department Care Team (Late st Contact Info) Description 07/28/2015 Hospital Encounter [facility] [address] [place] [address] Social History Tobacco Use Types Packs/Day Years [...] on file Legal Sex Female 7:42 PM DANCE CRITIC Gender Identity Not on file Sexual Orientation Not on file documented as of this encounter Functional Status * Audit-C Score Answer Date of Assessment Author 2 04/26/2023 1:29 PM Wing Hanna NP * Question Answer Date of [...] CDT) Impressions RAD_MAMMO_[facility] - 03/28/2023 10:04 AM DANCE CRITIC These images are for Reference purposes only and have not been reviewed by [facility]iology. There will be no report generated by a [facility] Radiologist. Narrative [facility]_MAMMO[facility] - 03/28/2023 10:04 AM DANCE CRITIC EXAMINATION: Images For Reference Purposes Only us Sylvia Gamez NP IMG MAMMO PROCEDURES Final Result RAD_MAMMO_[facility] documented in this encounter Visit Diagnoses Not on filedocumented in this encounter
--- OUTSIDE RECORDS SUMMARY | 2024-09-13 08:23 | XMS_ITS | Patient Health Record ---
Author Organization 1 OF [facility] Address [address] [place] [address] Care Team Providers Care Wrapping Checker Name Role Phone UNKNOWN, UNKNOWN Primary Care Provider Unavailab Boaz Cruz Unavailable Allergies No Known Allergies Reason For Referral No Information Problems Problem Type SNOMED Code ICD Code Onset Dates Problem Status W/U Status Risk Notes Problem [id number] Porokeratosis (Q82.8) Active confirmed Plan Of Treatment No Information Medical (General) History Surgical History Surgery Date(Month/Year)
--- OUTSIDE RECORDS SUMMARY | 2024-09-13 08:23 | XMS_ITS | Encounter Summary ---
Author Organization [facility] Healthcare Address [address] [place] [address] Care Team Providers Care Horizontal Drill Operator Name Role Phone Unavailable Primary Care Provider Unavailabl e Reason for Visit * Diagnostic Imaging (Routine) - Closed Specialty Diagnoses / Procedures Referred By Contac t Referred To Contact Procedures Breast Imaging US Outside Reference Transcribed Order, Provider Referral ID Status Reason Start Date Expiration Date Visits Re quested Visits Authorized [id number] Closed 03/28/2023 04/26/2024 1 1 Encounter Details Date Type Department Care Team (Late st Contact Info) Description 07/28/2015 12:05 AM CDT Hospital Encounter [facility] [address] [place] [id number] Social History Tobacco Use Types Packs/Day Years [...] on file Legal Sex Female 7:42 PM DRUPAL DEVELOPER Gender Identity Not on file Sexual Orientation [...] drinking? 1 or 2 04/26/2023 1:29 PM Mirina Hanna NP Q3: How often do you [...] Outside Reference (07/28/2015 12:05 AM CDT) Impressions RAD_MAMMO[facility] - 03/28/2023 11:52 AM DRUPAL DEVELOPER These images are for Reference purposes only and have not been reviewed by [facility]iology. There will be no report generated by a [facility] Radiologist. Narrative [facility]_MAMMO[facility] - 03/28/2023 11:52 AM DRUPAL DEVELOPER EXAMINATION: Images For Reference Purposes Only us Provider Transcribed Order IMG MAMMO PROCEDURES Final Result [facility]_MAMMO[facility] documented in this encounter Visit Diagnoses Not on filedocumented in this encounter
== END 2024-09-13 08:16 | disposition home or self-care (01) ==
PROVIDERS: PCP Nurse Practitioner Family; Visit Provider Nurse Practitioner Family
DX: R10.11 Right upper quadrant pain (principal)
CPT/HCPCS: 76705

== ENCOUNTER 2024-10-18 15:31 | Outpatient (CLI) | payer BC, SELFPAY ==
--- OUTSIDE RECORDS SUMMARY | 2024-10-18 15:35 | XMS_ITS | Encounter Summary ---
Author Organization [facility] Healthcare Address [address] [place] [address] Care Team Providers Care Oil Treater Name Role Phone Unavailable Primary Care Provider Unavailabl e Reason for Visit * Diagnostic Imaging (Routine) - Closed Specialty Diagnoses / Procedures Referred By Contac t Referred To Contact Procedures Breast Imaging US Outside Reference Transcribed Order, Provider Referral ID Status Reason Start Date Expiration Date Visits Re quested Visits Authorized [id number] Closed 03/28/2023 04/26/2024 1 1 Encounter Details Date Type Department Care Team (Late st Contact Info) Description 07/28/2015 12:05 AM CDT Hospital Encounter [facility] Radiology [facility] [address] [place] [address] Social History Tobacco Use Types Packs/Day Years [...] on file Legal Sex Female 7:42 PM LEATHER BELT LOOP CUTTER Gender Identity Not on file Sexual Orientation [...] CDT) Impressions RAD_MAMMO[facility] - 03/28/2023 11:52 AM LEATHER BELT LOOP CUTTER These images are for Reference purposes only and have not been reviewed by [facility] Radiology. There will be no report generated by a [facility] Radiologist. Narrative [facility]_MAM[facility] - 03/28/2023 11:52 AM LEATHER BELT LOOP CUTTER EXAMINATION: Images For Reference Purposes Only us Provider Transcribed Order IMG MAMMO PROCEDURES Final Result RAD_MAMMO[facility] documented in this encounter Visit Diagnoses Not on filedocumented in this encounter
--- OUTSIDE RECORDS SUMMARY | 2024-10-18 15:35 | XMS_ITS | Encounter Summary ---
Author Organization [facility] Healthcare Address [address] [place] [address] Care Team Providers Care Labor Relations Supervisor Name Role Phone Unavailable Primary Care Provider Unavailabl e Reason for Visit * Diagnostic Imaging (Routine) - Closed Specialty Diagnoses / Procedures Referred By Gissel cobb Referred To Contact Diagnoses Breast pain, left Procedures Breast Imaging Screening Outside Reference Sylvia Gamez NP Phone: tel: fax: Referral ID Status Reason Start Date Expiration Date Visits Re quested Visits Authorized [id number] Closed 03/28/2023 04/26/2024 1 1 Encounter Details Date Type Department Care Team (Late st Contact Info) Description 07/28/2015 Hospital Encounter [facility] [address] [place] [address] Social History Tobacco Use Types Packs/Day Years [...] on file Legal Sex Female 7:42 PM BOARD SETTER Gender Identity Not on file Sexual [...] CDT) Impressions [facility] - 03/28/2023 10:04 AM BOARD SETTER These images are for Reference purposes only and have not been reviewed by [facility] Radiology. There will be no report generated by a [facility] Radiologist. Narrative RAD_MAMMO[facility] - 03/28/2023 10:04 AM BOARD SETTER EXAMINATION: Images For Reference Purposes Only us Sylvia Gamez NP IMG MAMMO PROCEDURES Final Result RAD_MAMMO_[facility] documented in this encounter Visit Diagnoses Not on filedocumented in this encounter
--- OUTSIDE RECORDS SUMMARY | 2024-10-18 15:35 | XMS_ITS | Clinical Summary ---
Author Organization [facility] Address [facility] [place] [address] Care Team Providers Care Pressure Steamer Tender Name Role Phone None, Provider Primary Care [...] age to complete this topic Care Teams Pressure Steamer Tender Relationship Specialty Start Date End Date None, Provider, PCP - General 01/12/22
--- OUTSIDE RECORDS SUMMARY | 2024-10-18 15:35 | XMS_ITS | Patient Health Record ---
Author Organization [address] [facility] Address [address] [place] [address] Care Team Providers Care Full Time Staff Interpreter Name Role Phone UNKNOWN, UNKNOWN Primary Care Provider Unavailab Boaz Cruz Unavailable [phone] Allergies No Known Allergies Reason For Referral No Information Problems Problem Type SNOMED Code ICD Code Onset Dates Problem Status W/U Status Risk Notes Problem Porokeratosis ([id number]) Porokeratosis (Q82.8) Active confirmed Plan Of Treatment No Information Medical (General) History Surgical History Surgery Date(Month/Year)
--- OUTSIDE RECORDS SUMMARY | 2024-10-18 15:35 | XMS_ITS | Clinical Summary ---
Author Organization [facility] Medical Office Building B Address [address] [place] [address] Care Team Providers Care Stud Sheep Farmer Name Role Phone No, Physician Primary Care Provider [phone] Allergies No known active allergies Medications loratadine [...] on file Legal Sex Female 7:42 PM BEAUTY CONSULTANT Gender Identity Not on file Sexual Orientation Not on file Obstetrics History Para Term AB IAB SAB Ectopic Multiple Livin g Live Births 5 4 Date Outcome GA Total Labor Labor/2nd/3rd Weight Sex Type Anes PTL Peggy A1 A5 Name Clin Last Filed Vital Signs Vital Sign Reading Time Taken Comments Blood Pressure 118/76 04/26/2023 1:11 PM BEAUTY CONSULTANT Pulse 64 04/24/2018 2:55 PM BEAUTY CONSULTANT Temperature 37.1 C (98.8 F) 04/24/2018 2:55 PM BEAUTY CONSULTANT Respiratory Rate - - Oxygen Saturation 100% 04/24/2018 2:55 PM BEAUTY CONSULTANT Inhaled Oxygen Concentration - - Weight 84.5 kg (186 lb 3.2 oz) 04/26/2023 1:11 P M BEAUTY CONSULTANT Height 156.2 cm (5' 1.5) 03/28/2023 9:00 AM BEAUTY CONSULTANT Body Mass Index 34.61 03/28/2023 9:00 AM BEAUTY CONSULTANT Plan of Treatment Health Maintenance Due Date [...] Well Visit/Exam 18-64 04/26/2024 04/26/2023 Influenza Vaccine (#1) 2024 Pneumococcal vaccine <65 Aged Out No longer eligible based on patient's age to complete this topic Procedures Procedure Name Priority Date/Time Associated Diagnosis Comments PAP AND HPV, REFLEX TO HPV GENOTYPES Routine 04/26/2023 1:54 PM BEAUTY CONSULTANT Encounter for gynecological examination with Papanicolaou smear of cervix DIAGNOSTIC MAMMOGRAM BILATERAL W PRIYA Schedule Routine, Read Routine (OP Routine) 03/28/2023 10:24 AM BEAUTY CONSULTANT Breast pain, left from Last 3 Months or Most Recently Relevant to Health Maintenance Results * Pap and HPV, reflex to HPV Genotypes (04/26/2023 1:54 PM BEAUTY CONSULTANT) CLINICAL INFORMATION: [facility] Comment: Routine exam Postmenopausal LMP [employer] [facility] Comment:CECILIA Previous Pap [facility] Comment:None given Prev. Bx [facility] Comment:None given SOURCE: [facility] Comment:Cervix, Endocervix Pap, specimen adequacy [facility] Comment: Satisfactory for evaluation. Endocervical/transformation zone component present. HPV interp [facility] Comment: Cytology Results: Negative for intraepithelial lesion or malignancy. COMMENTS [facility] Comment: This case could not be evaluated with computer assisted technology. The slide was manually screened according to routine procedures. Cleat Feeder Jesus Manuel [facility] Comment: BES, CT(ASCP) CT screening location: [place] [address] Administration PHYLLIS Chavira [phone] Comment [facility] Comment: EXPLANATORY NOTE: The Pap is [...] Time PCR Thin prep 04/26/2023 1:54 PM BEAUTY CONSULTANT 04/27/2023 3:53 AM BEAUTY CONSULTANT us Mirian Montgomery NP LAB CYTOLOGY ORDERABLES Final Re sult [place] [address] Administration PHYLLIS [place] [phone] [facility] [address] [place] [address] * Diagnostic Mammogram Bilateral W Priya (03/28/2023 10:24 AM BEAUTY CONSULTANT) Anatomical Region Laterality Modality Breast Bilateral Mammography 03/28/2023 11:1 2 AM BEAUTY CONSULTANT Impressions 03/28/2023 11:21 AM BEAUTY CONSULTANT 1. Benign simple cyst corresponding to patient's [...] Joselin Whitney M.D. Narrative 03/28/2023 11:21 AM BEAUTY CONSULTANT EXAMINATION: BILATERAL DIGITAL DIAGNOSTIC MAMMOGRAM INCLUDING CAD [...] Recently Relevant to Health Maintenance Care Teams Stud Sheep Farmer Relationship Specialty Start Date End Date No, Physician PCP - General 02/08/23
--- OUTSIDE RECORDS SUMMARY | 2024-10-18 15:35 | XMS_ITS | Referral Summary ---
[facility] Address [address] [place] [address] Care Team Providers Care Pipeman Name Role Phone No, Physician Primary Care Provider [phone] Allergies No known active allergies Medications loratadine [...] on file Legal Sex Female 7:42 PM MAT [employer] Gender Identity Not on file Sexual Orientation Not on file Last Filed Vital Signs Vital Sign Reading Time Taken Comments Blood Pressure 118/76 04/26/2023 1:11 PM MAT MAKER Pulse 64 04/24/2018 2:55 PM MAT MAKER Temperature 37.1 C (98.8 F) 04/24/2018 2:55 PM MAT MAKER Respiratory Rate - - Oxygen Saturation 100% 04/24/2018 2:55 PM MAT MAKER Inhaled Oxygen Concentration - - Weight 84.5 kg (186 lb 3.2 oz) 04/26/2023 1:11 P M MAT MAKER Height 156.2 cm (5' 1.5) 03/28/2023 9:00 AM MAT MAKER Body Mass Index 34.61 03/28/2023 9:00 AM MAT MAKER Plan of Treatment Not on file Procedures Procedure Name Priority Date/Time Associated Diagnosis Comments PAP AND HPV, REFLEX TO HPV GENOTYPES Routine 04/26/2023 1:54 PM MAT MAKER Encounter for gynecological examination with Papanicolaou smear of cervix DIAGNOSTIC MAMMOGRAM BILATERAL W PRIYA Schedule Routine, Read Routine (OP Routine) 03/28/2023 10:24 AM MAT MAKER Breast pain, left from Last 3 Months or Most Recently Relevant to Health Maintenance Results * Pap and HPV, reflex to HPV Genotypes (04/26/2023 1:54 PM MAT MAKER) CLINICAL INFORMATION: [facility] Comment: Routine exam Postmenopausal LMP [facility] Comment:CECILIA Previous Pap [facility] Comment:None given Prev. Bx [facility] Comment:None given SOURCE: [facility] Comment:Cervix, Endocervix Pap, specimen adequacy [facility] Comment: Satisfactory for evaluation. Endocervical/transformation zone component present. HPV interp [facility] Comment: Cytology Results: Negative for intraepithelial lesion or malignancy. COMMENTS [facility] Comment: This case could not be evaluated with computer assisted technology. The slide was manually screened according to routine procedures. [employer] [facility] Comment: BES, CT(ASCP) CT screening location: [place] [address] Administration PHYLLIS Chavira [id number] Comment [facility] Comment: EXPLANATORY NOTE: The Pap is [...] Risk E6/E7 Not Detected NOT DETECTED [facility] /Wilian ZELAYA Comment: Not Detected High Risk HPV types (16,18,31,33,35,39,45,51,52, 56,58,59,66,68) were not detected. Other HPV types which cause anogenital lesions may be present. The significance of the other types of HPV in malignant processes has not been established. Methodology: Real Time PCR Thin prep 04/26/2023 1:54 PM MAT MAKER 04/27/2023 3:53 AM MAT MAKER Mirian Montgomery NP LAB CYTOLOGY ORDERABLES Final Re sult [place] [address] Administration PHYLLIS [place] [address] [facility]/[place] [address] [place] [address] * Diagnostic Mammogram Bilateral W Priya (03/28/2023 10:24 AM MAT MAKER) Anatomical Region Laterality Modality Breast Bilateral Mammography 03/28/2023 11:1 2 AM MAT MAKER Impressions 03/28/2023 11:21 AM MAT MAKER 1. Benign simple cyst corresponding to patient's [...] Joselin Whitney M.D. Narrative 03/28/2023 11:21 AM MAT MAKER EXAMINATION: BILATERAL DIGITAL DIAGNOSTIC MAMMOGRAM INCLUDING CAD [...] Recently Relevant to Health Maintenance Care Teams Pipeman Relationship Specialty Start Date End Date No, Physician PCP - General 02/08/23
== END 2024-10-18 15:32 | disposition home or self-care (01) ==
LOC: ANHLAB 15:33
PROVIDERS: PCP Nurse Practitioner Family; Visit Provider Nurse Practitioner Family
DX: K21.9 Gastro-esophageal reflux disease without esophagitis (principal)
CPT/HCPCS: 87338